=== PATIENT | male | born 1985 | race Two or more races ===

== ENCOUNTER 2023-12-18 13:37 | Emergency (ER) | payer OTHER ==
[~2023-12-18] VITALS: Ht 185.4 cm; Wt 119.9 kg
[2023-12-18] MEDS ORDERED: METH4PAK PO (14:54)
[2023-12-18 16:14] VITALS: BP 123/65; PULSE 52; RESP 17; O2SAT 98
== END 2023-12-18 16:15 | disposition home or self-care (01) ==
LOC: ER 13:41
DX: G51.0 Bell's palsy (principal); E11.9 Type 2 diabetes mellitus without complications
CPT/HCPCS: 70450; 82962